=== PATIENT | male | born 1980 | race Caucasian/White ===

== ENCOUNTER → 2017-06-28 | Outpatient (CLI) | payer OTHER, SELFPAY ==
--- NOTE | 2017-06-28 14:11 | CT ---
EXAM DESCRIPTION: Abdoment/Pelvis w/o Contrast CLINICAL HISTORY: 37 years, 37 years, Male, Male, GROSS HEMATURIA COMPARISON: None. TECHNIQUE: CT of the abdomen and pelvis is performed according to our non contrast protocol This exam was performed according to our departmental dose-optimization program, which includes automated exposure control, adjustment of the mA and/or kV according to patient size and/or use of iterative reconstruction technique. FINDINGS: The lung bases are clear, without infiltrate or effusion or mass. Noncontrast imaging demonstrates a homogeneous appearing liver without gross abnormality in a small normal spleen. The adrenal glands and pancreas are unremarkable. The gallbladder appears normal without ductal dilation. Each kidney is normal in size and appearance without hydronephrosis or stone disease within the kidney. No gross contour abnormality is noted but I would not consider noncontrast imaging of the abdomen and pelvis a complete workup for hematuria. The aorta is normal without significant atherosclerosis or aneurysm or retroperitoneal adenopathy. Within the pelvis the bladder is incompletely distended without obvious mass. A small normal prostate is noted. The bony spine is unremarkable in the anterior abdominal wall is unremarkable except for what appears to be a layer of mass or repair along the undersurface of the anterior abdominal wall at the level of the umbilicus. IMPRESSION: 1. Probable prior anterior abdominal wall surgery with mesh placement along the undersurface of the abdominal fascia at the level of the umbilicus. No fluid collection or mass or abscess seen. 2. Normal unenhanced appearance of the kidneys and collecting system and bladder. This does not represent a complete evaluation for hematuria. 3. The remainder the abdomen and pelvis without contrast is unremarkable. Electronically signed by: Salvador Chang MD 06/28/2017 2:09 PM [employer]
== END | disposition home or self-care (01) ==
LOC: GMA 12:03
PROVIDERS: ATTEND Physician Assistant
DX: R31.0 Gross hematuria (principal)